=== PATIENT | female | born 1965 | race Caucasian/White ===

== ENCOUNTER → 2018-11-02 | Outpatient (CLI) | payer OTHER ==
--- NOTE | 2018-11-02 09:59 | Diagnostic Imaging Report ---
Right knee MRI without contrast. History: Knee pain. Medial meniscus tear. Fall. Decreased range of motion. Comparison: None. Technique: Multiplanar multi-sequence MRI of the knee without contrast. Findings: Medial compartment: Mild midsubstance degeneration of the medial meniscus without tear. The medial compartmental articular cartilage surfaces are slightly thinned with regions of fraying and fissuring. The medial collateral ligament complex is intact. Lateral compartment: No meniscal tear or cartilage abnormality. The LCL complex is normal. Intercondylar notch: The ACL and PCL are intact. Patellofemoral compartment: No chondromalacia or patellar dislocation. Extensor mechanism: The quadriceps and patellar tendons are normal. Other findings: There is a joint effusion and synovitis. There is no acute fracture, subluxation or avascular necrosis. Small Corley's cyst IMPRESSION: No meniscal tear, collateral tear or cruciate ligament tear. 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 Small joint effusion and mild synovitis. Signed by: Dr. Ethan Wise M.D. on 11/02/2018 9:56 AM
== END ==
LOC: MRI 08:50
PROVIDERS: ATTEND Family Medicine
DX: S83.206A Unspecified tear of unspecified meniscus, current injury, right knee, initial encounter (principal)